=== PATIENT | male | born 1965 | race Caucasian/White ===

== ENCOUNTER 2022-08-08 07:24 | Day surgery (SDC) | payer OTHER ==
[2022-08-07 11:54] VITALS: BMI 35.6
[2022-08-08] MEDS ORDERED: PROPOFOL 40 ML ONE (07:55)
[2022-08-08 08:43] VITALS: RESP 18; TEMP 97.4
[2022-08-08 09:25] VITALS: BP 138/70; PULSE 74
== END 2022-08-08 09:26 | disposition home or self-care (01) ==
LOC: FASU-ENDO 07:24
PROVIDERS: ATTEND Student in an Organized Health Care Education/Training Program
PROC: 0DBN8ZX Excision of Sigmoid Colon, Via Natural or Artificial Opening Endoscopic, Diagnostic (ICD-10-PCS; principal; 2022-08-08 08:06)
DX: Z09 Encounter for follow-up examination after completed treatment for conditions other than malignant neoplasm (principal); R10.32 Left lower quadrant pain; Z87.19 Personal history of other diseases of the digestive system; K60.2 Anal fissure, unspecified; K52.89 Other specified noninfective gastroenteritis and colitis; K57.32 Diverticulitis of large intestine without perforation or abscess without bleeding; K63.89 Other specified diseases of intestine
CPT/HCPCS: 88305-TC